=== PATIENT | male | born 1980 | race Caucasian/White ===

== ENCOUNTER 2019-06-14 14:39 | Emergency (ER) | payer MEDICAID ==
[~2019-06-14] VITALS: Ht 177.8 cm; Wt 83.9 kg
[2019-06-14 14:53] VITALS: Ht 177.8 cm; Wt 83.9 kg
[2019-06-14 16:43] VITALS: BP 130/90
== END 2019-06-14 16:30 | disposition home or self-care (01) ==
LOC: ED 14:39
DX: R56.9 Unspecified convulsions (principal); S01.512A Laceration without foreign body of oral cavity, initial encounter; V87.8XXA Person injured in other specified noncollision transport accidents involving motor vehicle (traffic), initial encounter; Y93.89 Activity, other specified; Y92.89 Other specified places as the place of occurrence of the external cause; Y99.8 Other external cause status